=== PATIENT | male | born 2000 | race Caucasian/White ===

== ENCOUNTER 2022-01-20 19:08 | Emergency (ER) | payer BC, SELFPAY ==
--- NOTE | 2022-01-20 19:16 | ED.PSYCH ---
HPI - Psych General Chief Complaint: Psychiatric Symptoms Stated Complaint: SECTION 12,SI COMMENTS PER EMS Time Seen by Provider: 01/20/22 19:16 Source: patient Mode of arrival: EMS Limitations: other (not talking poor historian) History of Present Illness MD complaint: other (made SI statements to mom - would not engage with school security) Onset (ago): day(s) (incident today ) Duration: other History of same: No Relieving factors: none Exacerbating factors: none Context: other (will not answer) Associated psychiatric symptoms: none Associated symptoms: denies other symptoms Treatments prior to arrival: placed on mental health hold Related Data Allergies Allergy/AdvReac Type Severity Reaction Status Date / Time No Known Allergies Allergy Verified 01/20/22 19:28 Review of Systems Review of Systems: ROS unable to be obtained due to patient will not answer questions PMFSH Past Medical History Attestation statement: The following information was validated with the patient. Medical History No pertinent past medical history Social History Social History (Updated 01/20/22 @ 19:37 by Mili Butler DO) Patient Tobacco Use Status: Never used Tobacco Use of substances other than those prescribed or required for medical reasons: No Physical Exam Vital Signs: Vital Signs: Last Vital Signs Temp 98.6 F 01/20/22 19:26 Pulse 65 01/20/22 19:26 Resp 16 01/20/22 19:26 BP 113/70 01/20/22 19:26 Pulse Ox 98 01/20/22 19:26 BMI result Body Mass Index 25.8 Appearance: Alert. Oriented X3. No acute distress. Anxious, looking around - needs to be redirected, ?responding to internal stimuli Eyes: Pupils equal, round and reactive to light. 4mm dilated ENT: Pharynx normal. Neck: Normal inspection. Neck supple. CVS: Pulses normal. Respiratory: No respiratory distress. Abdomen: Atraumatic Skin: Skin warm and dry. Normal skin color. Normal skin turgor. Extremities: No lower extremity edema. L forearm has bandaid on it will not let me take it off Neuro: Oriented X 3. No motor deficit. No sensory deficit. CN2-12 intact Course Course Course Narrative: Physician observation started at 815pm. Patient placed in physician observation because the patient needed more time CARE team to assess presentation, the patient is refusing labs at this time. At the time observation was started the patient's vitals were stable, patient is alert and oriented but slightly agitated/anxious, Neuro: nonfocal, CV RRR, Lungs clear MDM - Psych MDM Narrative Medical decision making narrative: 21 yo patient coming from his college with complaints of making suicidal statements to his mother today. She called the college and when security went to check on him he became agitated. He is not forthcoming with information, he is looking around when I am asking him questions and I have to keep repeating myself at times and re-directing him. He denies AH/VH/ He denies drugs or using stimulants to help him study. At this time will obtain labs, COVID swab, drug screen and referral to CARE team. Lab Data Labs: Lab Results 01/20/22 Range/Units 19:46 COVID-19 ([facility]) Negative (Negative) COVID-19 Clin Com See Note Discharge Plan Discharge Clinical Impression: Anxiety Patient Disposition: Still a Patient
[2022-01-20 19:17] VITALS: BMI 25.8
[2022-01-20 19:26] VITALS: BP 113/70; PULSE 65; RESP 16; TEMP 37; O2SAT 98
[2022-01-20 20:07] LABS: COVID-19 Test Negative (Negative)
--- NOTE | 2022-01-20 20:07 | PC.NURSE ---
Pt refused blood tests and covid tests. Provider is aware at this time.
[2022-01-20 21:01] LABS: Amphetamine Screen Urine Not Detected (Not Detect); Barbiturates, Urine Not Detected (Not Detect); Benzodiazepines Screen Urine Not Detected (Not Detect); Cannabinoid Screen Urine Not Detected (Not Detect); Cocaine Screen Urine Not Detected (Not Detect); Fentanyl, urine Not Detected (Not Detect); Opiate Screen Urine Not Detected (Not Detect); Phencyclidine Screen Urine Not Detected (Not Detect)
--- NOTE | 2022-01-20 21:14 | PC.NURSE ---
Care team at bedside
--- NOTE | 2022-01-20 22:10 | PC.NURSE ---
Patient attempted to leap up to window in room. Staff at bedside, verbal reassurance given. Will monitor closely.
--- NOTE | 2022-01-20 22:30 | PC.NURSE ---
Patient refusing medication and lab draws at this time, education provided. DEANNA Toure notified. No new orders, will monitor closely.
[2022-01-21] VITALS: BP 112/72; PULSE 74; RESP 16; TEMP 36.7; O2SAT 96
--- NOTE | 2022-01-21 | PC.NURSE ---
Patient's mother, Jeronimo called and updated. VSS, patient awake and in bed. Will monitor closely.
--- NOTE | 2022-01-21 00:40 | PC.NURSE ---
Patient resting in bed, NAD noted. Will monitor closely.
--- NOTE | 2022-01-21 00:45 | MHC.CARE ---
Pt will remain in the ED overnight for a f/u by the CARE team and psychiatry to weigh in on dispo. Pt has been struggling, spoke to mother few times as parents live in [place] because pt is here for school. Belén Watkins, mom
--- NOTE | 2022-01-21 06:39 | PC.NURSE ---
Patient's mother, Jeronimo called and updated over phone. Patient asleep in bed, NAD noted. Will monitor closely.
--- NOTE | 2022-01-21 07:15 | PC.NURSE ---
patient appears to remain asleep at present respirations are even and unlabored patient appears in no distress
[2022-01-21 10:39] VITALS: BP 110/66; PULSE 82; TEMP 36.8; O2SAT 99
--- NOTE | 2022-01-21 11:25 | PHA.MEDREC ---
Pharmacy Consult ? Medication Reconciliation Pharmacy has completed the medication reconciliation.
--- NOTE | 2022-01-21 17:22 | MHC.CARE ---
Phone number for fatherHussein Sierra [phone]
[2022-01-22 04:00] VITALS: RESP 16
--- NOTE | 2022-01-22 06:08 | PC.NURSE ---
Patient slept through the night, no distress observed/reported, behavior appropriate and non concerning at this time, patient seen by care team, patient's parents on the way from [place] to pick him up, currently not on any medication, VSS, will continue to monitor.
[2022-01-22 06:34] VITALS: BP 97/54; PULSE 75; RESP 15; TEMP 36.6; O2SAT 98
--- NOTE | 2022-01-22 08:09 | PC.NURSE ---
pt is sleeping, resp even and unlabored.
--- NOTE | 2022-01-22 08:58 | PC.NURSE ---
pt's father flew in from [place] and is at his bedside.
--- NOTE | 2022-01-22 09:31 | PC.NURSE ---
per care team pt will be d/c home in father's care and pt has an extensive support system set up the [facility].
--- NOTE | 2022-01-22 09:54 | MHC.CARE ---
CARE Team meets with pt and his Father who recently arrived in this area after taking a red eye flight from [place].? Safety planning was conducted with Father and pt.? They will be staying at a local hotel nearby [facility].? This afternoon there is a meeting between them and the [facility] to explore resources and discuss academics. Pt is ready for discharge. ED provider Carisa Bradshaw and Pt?s nurse RN Santos have been advised of the plan and are in agreement. Safety plan is as follows: STEP 1:? WARNING SIGNS: 1.?Ramses notes that he gets red gets red in the face almost like a rash? 2.?Ramses notes that his breathing changes, becomes hard to breathe? 3.? Ramses gets a feeling of being overwhelmed? STEP 2:? INTERNAL COPING STRATEGIES-THINGS I CAN DO TO TAKE MY MIND OFF MY PROBLEMS WITHOUT CONTACTING ANOTHER PERSON: 1.? Ramses listens to music?2.? [place] will call his Mother? STEP 3:? PEOPLE AND SOCIAL SETTINGS THAT PROVIDE DISTRACTION: 1.? Name:? Mother? 2.? Name:? High school friends? STEP 4:? PEOPLE WHOM I CAN ASK FOR HELP DURING A CRISIS: 1.? Name:? [facility]? 2.? Name:? Mom & Dad? STEP 5:? PROFESSIONAL OR AGENCIES I CAN CONTACT DURING A CRISIS ? 1.??? Clinician/Agency Name:? [facility]- [phone], [place], [place] 2.??? Clinician/Agency Name:? [facility]- [phone], [address], [place] 3.??? Clinician/Agency Name:? [facility]- [phone], [facility] ED, [address]. [address]. [phone] Suicide Prevention Lifeline Phone: [phone] ? STEP 6:? MAKING THE ENVIRONMENT SAFER (PLAN FOR [employer]ETHAL [employer] SAFETY): Remove objects that you feel could be harmful to you if you are feeling unsafe?
== END 2022-01-22 09:54 | disposition home or self-care (01) ==
PROVIDERS: Emergency Provider Emergency Medicine
DX: R41.82 Altered mental status, unspecified (principal); R45.851 Suicidal ideations; F41.1 Generalized anxiety disorder; F43.0 Acute stress reaction; Z20.822 Contact with and (suspected) exposure to COVID-19; Z79.899 Other long term (current) drug therapy
CPT/HCPCS: 80307; 87635; 99285